=== PATIENT | male | born 1995 ===

== ENCOUNTER 2021-09-04 00:37 | Emergency (ER) | payer SELFPAY | END 2021-09-04 02:20 | disposition home or self-care (01) | LOC: JD.ED 00:37 | DX: F10.239 Alcohol dependence with withdrawal, unspecified (principal); G47.00 Insomnia, unspecified; Z28.310 Unvaccinated for COVID-19; Z87.891 Personal history of nicotine dependence | CPT/HCPCS: 99283; 99284 ==